=== PATIENT | female | born 1950 | race Caucasian/White ===

== ENCOUNTER 2017-01-09 00:08 | Emergency (ER) | payer MEDICARE, BC ==
[~2017-01-09] VITALS: Ht 175.3 cm; Wt 72.6 kg
--- NOTE | ~2017-01-09 | DIAG ---
[facility] [address] [facility] [place], [place] [address] Draft DATE OF STUDY: 01/09/2017 STUDY: Holter Monitor INDICATION: This is a 66-year-old female, who was referred for Holter monitor due to chest pain. SUMMARY REPORT: The patient was monitored for 48 hours and 32 minutes. There was 2 hours and 43 minutes of artifact. Total beats recorded 242,100 beats. The patient was predominantly in sinus rhythm with average heart rate of 87 beats per minute. Maximum heart rate was 129 beats per minute and minimum heart rate was 58 beats per minute. Arrhythmias noted as rare premature atrial and ventricular contractions. There was rare paroxysmal episodes of supraventricular tachycardia, longest of 12 beats. CONCLUSION: 1. A 48-hour Holter monitor with total of 242,100 beats analyzed. 2. The patient was predominantly in sinus rhythm with average heart rate of 87 beats per minute. 3. Arrhythmia was noted as rare premature atrial and ventricular contractions with rare episodes of supraventricular tachycardia, longest of 12 beats. [facility] MD PENNY Brown/MAGUE /[id number] PATIENT NAME: JARVIS MARTE DIAGNOSTIC STUDY DATE OF : 46 PHYSICIAN: PATIENCE BROWN MD REPORT #: [id number] REPORT IS CONFIDENTIAL AND NOT TO BE RELEASED WITHOUT AUTHORIZATION
[2017-01-09] MEDS ORDERED: SYNTHROID137 MCG PO (00:53)
[2017-01-09] MEDS ORDERED: ASPIR-LOW81 MG PO (00:54)
--- NOTE | 2017-01-10 19:15 | EKG ---
[facility] [address] [facility] [place] [address] Signed Normal sinus rhythm Right bundle branch block Left anterior fascicular block Bifascicular block Minimal voltage criteria for LVH, may be normal variant Abnormal ECG No previous ECGs available Confirmed by COURTNEY NAVA MD ([id number]) on 01/10/2017 7:14:53 PM Electronically Signed By: COURTNEY NAVA MD 01/10/17 1915 PATIENT NAME: JARVIS MARTE Electrocardiogram DATE OF : 46 PHYSICIAN: COURTNEY NAVA MD REPORT #: [id number] REPORT IS CONFIDENTIAL AND NOT TO BE RELEASED WITHOUT AUTHORIZATION
== END 2017-01-09 01:55 | disposition home or self-care (01) ==
LOC: ED 00:08
DX: R55 Syncope and collapse (principal); S01.112A Laceration without foreign body of left eyelid and periocular area, initial encounter; I10 Essential (primary) hypertension; F17.200 Nicotine dependence, unspecified, uncomplicated; Z90.710 Acquired absence of both cervix and uterus; Z98.890 Other specified postprocedural states; Z88.2 Allergy status to sulfonamides; Z79.82 Long term (current) use of aspirin; Z79.899 Other long term (current) drug therapy; W22.8XXA Striking against or struck by other objects, initial encounter
CPT/HCPCS: 70450; 80053; 84484; 85025; 90471; 90715; 93005; 93010; 93225; 93226; 93227; 99284; G0480

== ENCOUNTER 2024-01-02 10:32 | Day surgery (SDC) | payer MEDICARE ==
[~2024-01-02] VITALS: Ht 175.3 cm; Wt 75.9 kg
[~2024-01-02 10:32] MED LIST: ASPIR-LOW81 MG PO; IBLOOD GLUCOSE TEST STRIP 1 EA TEST VI PRN; LACTATED RINGER'S 1,000 ML IV SCH; LIDOCAINE HCL 1% 5 ML SDV INJ ONE; MIDAZOLAM HCL 5 MG/5 ML VIAL IV PRN; SYNTHROID137 MCG PO; fentaNYL citrate 100 MCG/2 ML VIAL IV PRN
[2024-01-02 10:54] VITALS: BP 155/72
[2024-01-02] MEDS ORDERED: fentaNYL citrate 100 MCG/2 ML VIAL ONE (12:28)
[2024-01-02] MEDS ORDERED: MIDAZOLAM HCL 5 MG/5 ML VIAL ONE (12:28)
--- NOTE | 2024-01-02 13:36 | NUR ---
01/02/24 1336 Jimena Brush 1331-PATIENT ARRIVED TO PACU ON RA RR EVEN. PATIENT DROWSY LAYING LEFT LATERAL DENIES PAIN OR NAUSEA. ORIENTED TO PACU. ABDOMEN SOFT. IVF INFUSING ENCOURAGED TO PASS GAS. PATIENT CLOSES EYES.
[2024-01-02 14:18] VITALS: BP 140/66
[2024-01-02 14:18] LABS: BASOPHILS 1.4 % (0-2); EOSINOPHILS 4.7 % (0-6); HEMATOCRIT 38.2 % (35.0-50.0); HEMOGLOBIN 13.2 g/dL (12.0-18.0); MCH 30.3 (27-36); MCHC 34.5 g/dl (30-36); MCV 87.8 fl (81-99); MONOCYTES 8.5 % (0-12); NEUTROPHILS 62.4 % (39-80); PLATELET COUNT 317 K/uL (140-440); RBC 4.35 M/ul (4.3-5.7); RDW 13.9 (10.5-15.0)
[2024-01-02 14:32] LABS: ALBUMIN 3.7 g/dL (3.4-5.0); ALBUMIN/GLOBULIN RATIO 1.23 (1.1-2.4); ANION GAP 8.2 (7-21); BILIRUBIN, TOTAL 0.5 ng/dL (0.2-1.0); BUN/CREATININE RATIO 9.3 (6.0-28.6); CALCIUM 9.8 mg/dL (8.5-10.1); CREATININE, SERUM 0.86 mg/dL (0.55-1.02); POTASSIUM 4.2 mmol/L (3.5-5.1); PROTEIN, TOTAL 6.7 g/dL (6.4-8.2)
[2024-01-04 22:23] LABS: CARCINOEMBRYONIC ANTIGEN 4.5 ng/mL (())
--- NOTE | 2024-01-05 11:13 | OR ---
[facility] [address] [place], [place] [address] Signed DATE OF OPERATION: 01/02/2024 SURGEON: Magi Acuña MD PREOPERATIVE DIAGNOSIS: Episodic rectal bleeding and constipation. POSTOPERATIVE DIAGNOSES: 1. Rectal cancer (posterolateral). 2. Diverticulosis. 3. Polyp at the left colon. Two polyps, sigmoid and one small polyp, rectum. PROCEDURES: Total colonoscopy to cecum with cold snare polypectomy x1, cold morcellation polypectomy x3 and multiple biopsies of rectal neoplasm. ANESTHESIA: Intravenous sedation; fentanyl 150 mcg and Versed 5 mg. INDICATION: A 73-year-old white woman is a patient of YAHAIRA Sanchez. She was referred for colonoscopy. She last underwent colonoscopy approximately 15 years ago in the [facility], which was said to be normal. She had a colonoscopy prior to that, which was said to be normal also. She has recently been having issues related to blood per rectum including blood clots and constipation. This has been going on nearly a year since November 2022. She has no pain on defecation. Family history is negative for colon cancer. She has a self-described history of "irritable bowel syndrome." She is admitted at this time to undergo colonoscopy on the basis of this finding. She understands the risk of bleeding, infection, perforation, and so on. Notably, the patient lives in [place], [place]. FINDINGS: She had a rectal neoplasm most consistent with low rectal cancer just above the dentate line. It was posteriorly and laterally oriented. Additionally, she had diverticulosis of the sigmoid, a sessile polyp of the left colon and two small polyps of the sigmoid and another small polyp of the rectum. The remaining colon was normal. PROCEDURE IN DETAIL: The patient was brought to the endoscopy suite and placed in lateral decubitus position, given intravenous sedation to the point of slurred speech and nystagmus. Electronically Signed By: MAGI ACUÑA MD 01/05/24 1113 PATIENT NAME: JARVIS MARTE OPERATIVE REPORT DATE OF : 46 REPORT #: [id number] PHYSICIAN: MAGI ACUÑA MD PCP: SELVIN NINO NP REPORT IS CONFIDENTIAL AND NOT TO BE RELEASED WITHOUT AUTHORIZATION [facility] [address] [place], [place] [address] Signed Cardiopulmonary monitoring was maintained. Digital rectal examination was undertaken noting a suspicious lesion of the anal canal and lower rectum most consistent with initially thought to be possible anal cancer. However, additional examination subsequently did show an ulcerated more broad lesion cephalad to the dentate line posteriorly and laterally oriented, which appeared to be nonfixed. An Olympus video colonoscope was passed in the rectum and manipulated throughout the colon noting numerous diverticula of the sigmoid and left colon. Scope was ultimately passed to the cecum with full intubation of cecum. Irrigation was undertaken upon withdrawal of the scope. No abnormality was noted until the proximal left colon where a sessile polyp was noted, this was excised with cold snare technique. Further withdrawal of scope showed diverticulosis of the sigmoid colon. There were two small polyps in this region, both excised with cold morcellation technique. Further withdrawal retroflexed view confirming obvious malignant neoplasm probably low rectal. This was multiple biopsied in both retroflex and antegrade position. It was uncertain if this may represent a transitional malignancy between the dentate line in the rectum, but upon further palpation the lesion seemed to be ulcerated, posteriorly oriented and not fixed, but dominantly in the rectum itself. Photographs were taken of course. Biopsies were taken additionally of the junction between the dentate line and neoplasm itself. The scope was removed. The patient was taken to the recovery room in good condition. CONCLUDING DIAGNOSIS: Rectal cancer most likely. Diverticulosis and polyps elsewhere. PLAN: She will need additional therapy of course. Likely this would include neoadjuvant chemoradiation therapy after diagnosis more fully secure. A CT of the abdomen and pelvis would be undertaken to assess for regional involvement and metastatic disease. We will obtain today a CEA, Chem 20, and a CBC and have her return to see me in 1 to 2 weeks and organized for outpatient pelvic and abdominal CT scan. Magi Acuña MD JM/MODL /[id number] Electronically Signed By: MAGI ACUÑA MD 01/05/24 1113 PATIENT NAME: JARVIS MARTE OPERATIVE REPORT DATE OF : 46 REPORT #: [id number] PHYSICIAN: MAGI ACUÑA MD PCP: SELVIN NINO NP REPORT IS CONFIDENTIAL AND NOT TO BE RELEASED WITHOUT AUTHORIZATION [address] [address] Signed cc: YAHAIRA Sanchez Copies: ~ Electronically Signed By: MAGI ACUÑA MD 01/05/24 1113 PATIENT NAME: JARVIS MARTE MOON OPERATIVE REPORT DATE OF : 46 REPORT #: [id number] PHYSICIAN: MAGI ACUÑA MD PCP: SELVIN NINO NP REPORT IS CONFIDENTIAL AND NOT TO BE RELEASED WITHOUT AUTHORIZATION
--- NOTE | 2024-01-06 17:35 | PATH ---
[facility] [address] [place], [place] [address] Signed SPECIMEN(S): A DESCENDING POLYP SPECIMEN(S): B SIGMOID POLYP SPECIMEN(S): C LOW RECTAL TUMOR BIOPSY SPECIMEN(S): D ANORECTAL JUNCTION BIOPSY SPECIMEN(S): E RECTAL POLYP SPECIMEN SOURCE: A. DESCENDING POLYP B. SIGMOID POLYP C. LOW RECTAL TUMOR BIOPSY D. ANORECTAL JUNCTION BIOPSY E. RECTAL POLYP CLINICAL HISTORY: History of constipation/rectal bleeding/abdominal pain, irritable bowel syndrome FINAL PATHOLOGIC DIAGNOSIS: A. Descending polyp: - Tubular adenoma (one fragment). B. Sigmoid polyp: - Hyperplastic polyp (two fragments). C. Low rectal tumor biopsy: - Tubular adenoma with high-grade dysplasia, suspicious for invasive carcinoma. D. Anorectal junction biopsy: - Hyperplastic polyp (one fragment). E. Rectal polyp: - Hyperplastic polyp (one fragment). COMMENT: As part of [facility]' Quality Improvement Program, this case was reviewed by another member of our pathology staff. ANKITA:REBEKAH:mikie MICROSCOPIC EXAMINATION: Histologic sections of all submitted blocks are examined by light microscopy. These findings, together with the gross examination, support the pathologic diagnosis. GROSS DESCRIPTION: PATIENT NAME: JARVIS MARTINEZ PATHOLOGY DATE OF : 46 REPORT #: [id number] PHYSICIAN: INC[facility] PATHOLOG[facility] PCP: SELVIN NINO NP REPORT IS CONFIDENTIAL AND NOT TO BE RELEASED WITHOUT AUTHORIZATION [facility] [address] [facility] [place] [address] Signed A. The specimen, labeled and designated "Martinez, descending polyp," is received in formalin and consists of three zepeda soft tissue fragments, ranging from 0.1-0.4 cm. Entirely submitted in (A1). B. The specimen, labeled and designated "Martinez, sigmoid polyp," is received in formalin and consists of two zepeda soft tissue fragments, ranging from 0.2-0.3 cm. Entirely submitted in (B1). C. The specimen, labeled and designated "Martinez, low rectal tumor biopsy," is received in formalin and consists of five zepeda soft tissue fragments, ranging from 0.1-0.3 cm. Entirely submitted in (C1). D. The specimen, labeled and designated "Martinez, anorectal junction biopsy," is received in formalin and consists of one zepeda soft tissue fragment, 0.5 cm. Entirely submitted in (D1). E. The specimen, labeled and designated "Martinez, rectal polyp," is received in formalin and consists of one zepeda soft tissue fragment, 0.2 cm. Entirely submitted in (E1). VB (under the direct supervision of a pathologist) The Gross Description was prepared using a voice recognition system. The report was reviewed for accuracy; however, sound-alike word errors, addition and/or deletions may occur. If there is any question about this report, please contact Client Services. PERFORMING LABORATORY: Technical component was performed by [facility], [address] [place] [id number] (CLIA# [id number]). Professional interpretation was performed by [facility], [address] [place] [id number] (CLIA#: [id number]). Diagnostician: Nile Rojo MD Pathologist Electronically Signed 01/06/2024 Copies: ~ PATIENT NAME: ROSANNAJARVISMARIA LUISA MUSTAFA PATHOLOGY DATE OF : 46 REPORT #: [id number] PHYSICIAN: JAYSON MANCILLA PCP: SELVIN NINO NP REPORT IS CONFIDENTIAL AND NOT TO BE RELEASED WITHOUT AUTHORIZATION
== END 2024-01-02 14:30 | disposition home or self-care (01) ==
LOC: DS 10:32
PROVIDERS: ATTEND Surgery
PROC: 0DBN8ZZ Excision of Sigmoid Colon, Via Natural or Artificial Opening Endoscopic (ICD-10-PCS; 2024-01-02)
PROC: 0DBP8ZZ Excision of Rectum, Via Natural or Artificial Opening Endoscopic (ICD-10-PCS; 2024-01-02)
PROC: 0DBG8ZZ Excision of Left Large Intestine, Via Natural or Artificial Opening Endoscopic (ICD-10-PCS; principal; 2024-01-02 11:45)
DX: C20 Malignant neoplasm of rectum (principal); K62.1 Rectal polyp; K63.5 Polyp of colon; K57.30 Diverticulosis of large intestine without perforation or abscess without bleeding; E03.9 Hypothyroidism, unspecified; N83.209 Unspecified ovarian cyst, unspecified side; Z87.19 Personal history of other diseases of the digestive system; Z90.711 Acquired absence of uterus with remaining cervical stump
CPT/HCPCS: 36415; 74177; 80053; 82378; 85025; 99153; G0500; J2250; J3010; J7121; Q9967

== ENCOUNTER 2024-05-28 12:48 | Day surgery (SDC) | payer MEDICARE ==
[~2024-05-28] VITALS: Ht 175.3 cm; Wt 72.0 kg
[2024-05-28 13:03] VITALS: BP 174/83
[2024-05-28 13:12] VITALS: BP 148/68
[2024-05-28] MEDS ORDERED: fentaNYL citrate 100 MCG/2 ML VIAL ONE ×2 (14:39→14:59)
[2024-05-28] MEDS ORDERED: MIDAZOLAM HCL 5 MG/5 ML VIAL ONE ×2 (14:39→14:59)
[2024-05-28 16:12] VITALS: BP 131/71
--- NOTE | 2024-05-28 17:39 | NUR ---
05/28/24 1739 Umu Dewey 1537 PT ARRIVED TO PACU ON 2L NC, PT WAKES EASILY AND DENIES CONCERNS. PT EASILY FALLS BACK TO SLEEP. 1547 MD AT BEDSIDE AND WAKES EASILY AND UPDATES DAUGHTER AND PT. PLAN OF CARE DISCUSSED. 1615 PT RESTING AND AND DENIES CONCERNS. 1625 DC INSTRUCTIONS GIVEN AND ALL QUESTIONS ANSWERED. PT DRESSED HERSELF AND DENIES CONCERNS. VSS. PT DC VIA WC.
--- NOTE | 2024-05-29 12:48 | OR ---
[facility] [address] [place], [place] [address] Signed DATE OF OPERATION: 05/28/2024 SURGEON: Magi Acuña MD PREOPERATIVE DIAGNOSES: 1. Very low rectal carcinoma, bulky and hemorrhagic, diagnosed in December 2023. 2. Status post neoadjuvant radiation therapy. POSTOPERATIVE DIAGNOSES: 1. Diverticulosis, left colon and small polyp left colon. 2. Probable residual rectal cancer, right lateral rectal wall. PROCEDURE: Total colonoscopy to cecum with cold morcellation polypectomy x1 and biopsies of rectal wall neoplasm. ANESTHESIA: Intravenous sedation fentanyl 100 mcg and Versed 5 mg. INDICATION: This 73-year-old white woman is a patient of YAHAIRA Sanchez and Dr. Alexander. She had undergone neoadjuvant radiation therapy at the [facility] under the direction of Dr. Hall. Concurrent chemotherapy was not undertaken, only radiation therapy. The tumor previously was exuding from the anal canal, very hemorrhagic, friable and bulky. Radiation therapy has markedly improved her situation. She does not have rectal bleeding now and a recent MRI showed no evidence of metastatic disease locally or elsewhere. Tumor is not particularly perceptible on the MRI. She is now to undergo colonoscopy to better characterize the rectum and more proximal colon on the high probability. She will need abdominoperineal resection. The risk of bleeding, infection, and perforation were reviewed with her. She understands and wished to proceed. FINDINGS: The prep was good. Complete colonoscopy was undertaken of cecum. There were numerous diverticula of the sigmoid and left colon. There was a polyp of left colon which was excised. The low rectum in the region essentially at the dentate line did have residual neoplasm it appeared and was on the right side. It is vastly improved compared to the past. Multiple biopsies were obtained. The remaining rectum appeared reasonably Electronically Signed By: MAGI ACUÑA MD 05/29/24 1248 PATIENT NAME: JARVIS MARTE OPERATIVE REPORT DATE OF : 46 REPORT #: [id number] PHYSICIAN: MAGI ACUÑA MD PCP: SELVIN NINO NP REPORT IS CONFIDENTIAL AND NOT TO BE RELEASED WITHOUT AUTHORIZATION [facility] [address] [place], [place] [address] Signed normal. PROCEDURE IN DETAIL: The patient was brought to the endoscopy suite and placed in lateral decubitus position, given intravenous sedation to the point of slurred speech and nystagmus. Cardiopulmonary monitoring was maintained. Digital rectal examination showed thickening in the right perirectal area. There was no induration. No sign of fissure. An Olympus video colonoscope was passed in the rectum and manipulated throughout the colon noting numerous diverticula of the sigmoid and left colon. Scope was ultimately advanced to the cecum. The scope was withdrawn from that point and examination undertaken showed diverticula of the left colon most dominantly in the sigmoid and a small polyp of the left colon which was excised with cold morcellation technique. Further withdrawal allowed for visualization of the rectal mucosa. Retroflexed view confirmed right lateral rectal wall to have thickened area and heaped up mucosa suggestive of residual tumor. The extent to which radiation effect with nonmalignant tissue is uncertain. Scope was withdrawn. Biopsies multiply taken of the right lateral rectal wall corresponding to the abnormality. Remaining rectum and anal canal were normal. Scope was removed. The patient was taken to the recovery room in good condition. 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 PLAN: Would likely need an abdominoperineal resection with permanent end colostomy given the level for which the neoplasm is present. We will await the pathology report before committing to a course of action. She will return and I will confer with her on the phone as to the path results as she does live far away in [place], [place]. MD ADRIANO Swenson/GLADISL /[id number] cc: Dr. Hall [facility] Electronically Signed By: MAGI ACUÑA MD 05/29/24 1248 PATIENT NAME: JARVIS MARTE OPERATIVE REPORT DATE OF : 46 REPORT #: [id number] PHYSICIAN: MAGI ACUÑA MD PCP: SELVIN NINO NP REPORT IS CONFIDENTIAL AND NOT TO BE RELEASED WITHOUT AUTHORIZATION [facility] [address] [place] [address] Signed YAHAIRA Sanchez MD Copies: SARA ALEXANDER MD ~ Electronically Signed By: MAGI ACUÑA MD 05/29/24 1248 PATIENT NAME: JARVIS MARTE OPERATIVE REPORT DATE OF : 46 REPORT #: [id number] PHYSICIAN: MAGI ACUÑA MD PCP: SELVIN NINO NP REPORT IS CONFIDENTIAL AND NOT TO BE RELEASED WITHOUT AUTHORIZATION
--- NOTE | 2024-06-01 15:59 | PATH ---
[facility] [address], [place] [address] Signed SPECIMEN(S): A DESCENDING COLON POLYP SPECIMEN(S): B RECTUM BIOPSY SPECIMEN SOURCE: A. DESCENDING COLON POLYP B. RECTUM BIOPSY CLINICAL HISTORY: Rectal cancer, diverticulosis, low rectal biopsies of tumor s/p radiation FINAL PATHOLOGIC DIAGNOSIS: A. Colon, descending, polypectomy: - Colonic mucosa with no significant pathologic changes B. Rectum, biopsy: - Colonic mucosa with high-grade adenomatous dysplasia, see comment COMMENT: For part B, the clinical history of rectal cancer is noted. While no invasion is seen in the current specimen, the biopsies are superficial, and an underlying invasive malignancy cannot be excluded. Correlation with clinical and endoscopic information is needed. [facility] MICROSCOPIC EXAMINATION: Histologic sections of all submitted blocks are examined by light microscopy. These findings, together with the gross examination, support the pathologic diagnosis. GROSS DESCRIPTION: A. The specimen, labeled and designated "Juan, descending colon polyp," is received in formalin and consists of 3 zepeda soft tissue fragments, ranging from 0.1 to 0.2 cm. Entirely submitted in A1. B. The specimen, labeled and designated "Juan, rectal biopsy," is received in formalin and consists of 7 zepeda soft tissue fragments, ranging from 0.1 to 0.4 cm. Entirely submitted in B1. The Gross Description was prepared using a voice recognition system. The report was reviewed for accuracy; however, sound-alike word errors, addition and/or deletions may occur. If there is any question about this report, please contact Client Services. ADDITIONAL NOTES: PATIENT NAME: JARVIS MARTE PATHOLOGY DATE OF : 46 REPORT #: [id number] PHYSICIAN: JAYSON MANCILLA PCP: SELVIN NINO NP REPORT IS CONFIDENTIAL AND NOT TO BE RELEASED WITHOUT AUTHORIZATION [facility] [address] [facility] [place] [address] Signed Immunohistochemical and/or in situ hybridization studies if performed in this case included appropriate positive controls that reacted as expected. This test was developed and its performance characteristics determined by [facility]. It has not been cleared or approved by the U.S. Food and Drug Administration. The FDA has determined that such clearance or approval is not necessary. This test is used for clinical purposes. It should not be regarded as investigational or for research. [facility] is certified under the Clinical Laboratory Improvement Amendments of 1988 (CLIA) as qualified to perform high complexity clinical laboratory testing. PERFORMING LABORATORY: Technical component was performed by [facility], [address] [place] [id number] (CLIA# [id number]). Professional interpretation was performed by [facility], [address] [place] [id number] (CLIA#: [id number]). Diagnostician: Geovany Samuels MD Pathologist Electronically Signed 06/01/2024 Copies: ~ PATIENT NAME: JARVIS MARTE PATHOLOGY DATE OF : 46 REPORT #: [id number] PHYSICIAN: JAYSON MANCILLA PCP: SELVIN NINO NP REPORT IS CONFIDENTIAL AND NOT TO BE RELEASED WITHOUT AUTHORIZATION
== END 2024-05-28 16:25 | disposition home or self-care (01) ==
LOC: DS 12:48
PROVIDERS: ATTEND Surgery
PROC: 0DBP8ZZ Excision of Rectum, Via Natural or Artificial Opening Endoscopic (ICD-10-PCS; 2024-05-28)
PROC: 0DBG8ZZ Excision of Left Large Intestine, Via Natural or Artificial Opening Endoscopic (ICD-10-PCS; principal; 2024-05-28 13:45)
DX: K63.5 Polyp of colon (principal); K57.30 Diverticulosis of large intestine without perforation or abscess without bleeding; F17.200 Nicotine dependence, unspecified, uncomplicated; C20 Malignant neoplasm of rectum; Z88.2 Allergy status to sulfonamides
CPT/HCPCS: 99153; G0500; J2250; J3010; J7121